=== PATIENT | male | born 2000 | race Hispanic/Latino ===

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

== ENCOUNTER 2021-07-07 10:44 | Emergency (ER) | payer SELFPAY ==
[2021-07-07] MEDS ORDERED: Diazepam 5 MG TAB ONE (12:04)
[2021-07-07] MEDS ORDERED: Ketorolac Tromethamine 30 MG/ML VIAL ONE (12:05)
== END 2021-07-07 12:50 | disposition home or self-care (01) ==
LOC: ERS 10:44
DX: M62.838 Other muscle spasm (principal)
CPT/HCPCS: 96372; 99283; J1885

== ENCOUNTER 2022-09-26 12:12 | Emergency (ER) | payer SELFPAY ==
[2022-09-26] MEDS ORDERED: Ketorolac Tromethamine 30 MG/ML VIAL ONE (13:27)
[2022-09-26] MEDS ORDERED: Cyclobenzaprine 10 MG TAB ONE (13:27)
== END 2022-09-26 13:53 | disposition home or self-care (01) ==
LOC: ERS 12:12
DX: S39.012A Strain of muscle, fascia and tendon of lower back, initial encounter (principal); Y93.89 Activity, other specified
CPT/HCPCS: 96372; 99283; J1885